=== PATIENT | male | born 1995 | race Caucasian/White ===

== ENCOUNTER 2017-04-21 20:43 | Emergency (ER) | payer OTHER ==
--- NOTE | 2017-04-21 21:17 | ER Document Report ---
ED Psych Disorder / Suicide - General Mode of Arrival: Medic Information source: Patient - HPI Patient complains to provider of: Hallucinating, Suicidal ideation Associated symptoms: Other - see above <MARCI WARNER - Last Filed: 04/21/17 22:43> <SUNDAY SANDOVAL - Last Filed: 04/21/17 22:52> - General Chief Complaint: Suicidal Ideation Stated Complaint: MENTAL HEALTH EVALUATION Time Seen by Provider: 04/21/17 20:51 Notes: Patient is a 21 year old male who presents to the ED with complaints of having suicidal ideations that are becoming worse. Patient states he began having suicidal ideations in September 2015 when his brother from an overdose. Patient states they are becoming too much and he is still trying to figure out a plan. Patient denies trying self harm in the past. Patient has seen a therapist for anxiety and depression but is unsure when the last time he saw them wa. Patient was staying at the [facility] when he called EMS today. He is suppose to check into his command with [employer] [facility] [place] today. Patient states that they know he is here but asks that we call them. Patient also states he is having auditory halluicinations that are wordless screaming, they voices are not telling him to do anything. Patient has also been having visual hallucinations of his brother since his brother 1 year ago. Patient also states he is having bilateral foot pain on the bottom of his feet from lacerations from shellfish that he got on Tuesday morning. Patient was put on antibiotics at that time. (MARCI WARNER) - Related Data Allergies/Adverse Reactions: No Known Allergies Allergy (Unverified 04/21/17 21:43) Past Medical History - General Information source: Patient - Social History Smoking Status: Current Every Day Smoker Chew tobacco use (# tins/day): No Frequency of alcohol use: None Drug Abuse: None <MARCI WARNER - Last Filed: 04/21/17 22:43> - Social History Family History: Other - Brother of an overdose approximately 1 year ago <SUNDAY SANDOVAL - Last Filed: 04/21/17 22:52> Review of Systems - Review of Systems Constitutional: No symptoms reported EENT: No symptoms reported Cardiovascular: No symptoms reported Respiratory: No symptoms reported Gastrointestinal: No symptoms reported Genitourinary: No symptoms reported Male Genitourinary: No symptoms reported Musculoskeletal: No symptoms reported Skin: See HPI, Other - lacerations from shellfish on bottoms of bilateral feet Hematologic/Lymphatic: No symptoms reported Neurological/Psychological: See HPI, Hallucinations, Suicidal ideation <MARCI WARNER - Last Filed: 04/21/17 22:43> Physical Exam <MARCI WARNER - Last Filed: 04/21/17 22:43> <SUNDAY SANDOVAL - Last Filed: 04/21/17 22:52> - Vital signs Vitals: Pulse BP Pulse Ox 61 139/72 H 96 04/21/17 21:12 04/21/17 21:12 04/21/17 21:12 - Notes Notes: GENERAL: Alert, reserved. No acute distress. HEAD: Normocephalic, atraumatic. EYES: Pupils equal, round, and reactive to light. Extraocular movements intact. ENT: Oral mucosa moist, tongue midline. NECK: Full range of motion. Supple. Trachea midline. LUNGS: Clear to auscultation bilaterally, no wheezes, rales, or rhonchi. No respiratory distress. HEART: Regular rate and rhythm. No murmurs, gallops, or rubs. ABDOMEN: Soft, non-tender. Non-distended. Bowel sounds present in all 4 quadrants. EXTREMITIES: Moves all 4 extremities spontaneously. No edema. No cyanosis. NEUROLOGICAL: Alert and oriented x3. Normal speech. PSYCH: Flat affect, depressed, reserved. SKIN: Warm, dry, normal turgor. Multiple 1cm long laceration to dorsal aspect of bilateral feet, no surrounding erythema with minimal swelling, small amount of lint surrounding lacerations, no exudate, no signs of infection. (MARCI WARNER) Course - Laboratory Result Diagrams: 04/21/17 21:35 04/21/17 21:35 - Consults [facility] Transfer Line Time consulted: 21:18 <MARCI WARNER - Last Filed: 04/21/17 22:43> - Laboratory Result Diagrams: 04/21/17 21:35 04/21/17 21:35 <SUNDAY SANDOVAL - Last Filed: 04/21/17 22:52> - Re-evaluation Re-evalutation: 04/21/17 21:21 At 2121 I attempted to contact patients command with the number he provided me. There was no answer and the mailbox was full. (MARCI WARNER) 04/21/17 22:48 CBC unremarkable, CMP unremarkable, acetaminophen, salicylates, alcohol all undetectable, Discussed the patient with transfer line at [facility], they accept the patient as a transfer for psychiatry, Dr. 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 They will have someone here at midnight to transport him. (SUNDAY SANDOVAL) - Vital Signs Vital signs: Temp Pulse Resp BP Pulse Ox 122 H 139/72 H 93 04/21/17 21:21 04/21/17 21:12 04/21/17 21:21 - Laboratory Laboratory results interpreted by me: 04/21/17 21:35 Salicylates < 1.0 L Acetaminophen < 10 L - EKG Interpretation by Me Additional EKG results interpreted by me: 04/21/17 22:49 EKG shows sinus rhythm at a rate of 59, disagree with assessment of LVH, agree with early repolarization, T-wave inversions noted in lead III, normal axis and normal intervals per my interpretation. (SUNDAY SANDOVAL) - Consults [facility] Transfer Line Reason for consultation: 04/21/17 21:18 I contacted [facility] transfer line. They are in the middle of transferring a STEMI and will call back when they are able. 04/21/17 21:42 Discussed patient. They will page the doctor nonprofit manager and they will call back. 04/21/17 22:43 Discussed patient. Transfer line called to let me know that Dr. Mira Hernandez accepts patients for transfer. She does not need to speak with me as they automatically accept active duty . They will arrange transport. (MARCI WARNER) Discharge <MARCI WARNER - Last Filed: 04/21/17 22:43> <SUNDAY SANDOVAL - Last Filed: 04/21/17 22:52> - Discharge Clinical Impression: Suicidal ideation, Auditory hallucinations, Visual hallucinations Condition: Stable Disposition: OTHER Additional Instructions: You are being transported to [facility] for further psychiatric assessment and treatment. Scribe Attestation: 04/21/17 22:51 I personally performed the services described in the documentation, reviewed and edited the documentation which was dictated to the scribe in my presence, and it accurately records my words and actions. (SUNDAY SANDOVAL) Scribe Documentation - Scribe Written by Joel:: joel Plummer, 04/21/2017, 2119 acting as scribe for :: Anjana <MARCI WARNER - Last Filed: 04/21/17 22:43>
[2017-04-21 21:34] VITALS: BP 139/72
[2017-04-21 21:47] LABS: ABSOLUTE BASOPHILS # (AUTO) 0.1 10^3/uL (0.0-0.2); ABSOLUTE LYMPHOCYTES (AUTO) 1.8 10^3/uL (0.5-4.7); ABSOLUTE MONOCYTES (AUTO) 0.5 10^3/uL (0.1-1.4); ABSOLUTE NEUT (AUTO) 5.2 10^3/uL (1.7-8.2); BASOPHILS % (AUTO) 1.4 % (0-2); EOSINOPHILS % (AUTO) 0.7 % (0-6); HEMATOCRIT 46.7 % (37.9-51.0); HEMOGLOBIN 15.9 g/dL (13.5-17.0); LYMPHOCYTES % (AUTO) 23.4 % (13-45); MEAN CORPUSCULAR HEMOGLOBIN 31.1 pg (27.0-33.4); MEAN CORPUSCULAR HGB CONC 34.1 g/dL (32.0-36.0); MEAN CORPUSCULAR VOLUME 91 fl (80-97); MONOCYTES % (AUTO) 6.1 % (3-13); RED BLOOD COUNT 5.11 10^6/uL (4.35-5.55); RED CELL DISTRIBUTION WIDTH 13.6 % (11.5-14.0); SEGMENTED NEUTROPHILS % (AUTO) 68.4 % (42-78); WHITE BLOOD COUNT 7.5 10^3/uL (4.0-10.5)
[2017-04-21 21:58] LABS: ALANINE AMINOTRANSFERASE 32 U/L (10-40); ALBUMIN 4.5 g/dL (3.7-5.6); ALCOHOL < 10 mg/dL (NONE DETECTED); ALKALINE PHOSPHATASE 92 U/L (65-260); ANION GAP 11 (5-19); ASPARTATE AMINO TRANSFERASE 18 U/L (10-45); BILIRUBIN,DIRECT 0.3 mg/dL (0.0-0.4); BILIRUBIN,TOTAL 0.6 mg/dL (0.2-1.3); BLOOD UREA NITROGEN 13 mg/dL (7-20); CALCIUM 9.3 mg/dL (8.4-10.2); CARBON DIOXIDE 27 mmol/L (22-30); CHLORIDE 105 mmol/L (98-107); GLUCOSE 107 mg/dL (75-110); POTASSIUM 4.3 mmol/L (3.6-5.0); SODIUM 143.2 mmol/L (137-145); TOTAL PROTEIN 7.5 g/dL (6.3-8.2)
--- NOTE | 2017-04-22 12:12 | EKG REPORT ---
SEVERITY:- ABNORMAL ECG - SINUS RHYTHM PROBABLE LEFT VENTRICULAR HYPERTROPHY ST ELEV, PROBABLE NORMAL EARLY REPOL PATTERN : Confirmed by: Danay Kimble MD 22-Apr-2017 12:11:16
== END 2017-04-22 00:15 ==
LOC: ER 20:43
DX: R45.851 Suicidal ideations (principal); R44.0 Auditory hallucinations; R44.1 Visual hallucinations; M79.672 Pain in left foot; M79.671 Pain in right foot; F17.200 Nicotine dependence, unspecified, uncomplicated
CPT/HCPCS: 36415; 80053; 80307; 85025; 93005; 93010; 99285